=== PATIENT | male | born 1955 | race Caucasian/White ===

== ENCOUNTER 2017-06-27 17:25 | Emergency (ER) | payer MEDICARE, OTHER ==
[~2017-06-27] VITALS: Ht 167.6 cm; Wt 95.2 kg
[~2017-06-27 17:25] MED LIST: DOXAZOSIN MESYLA2 MG PO; DULOXETINE HCL30 MG PO; ENDOCET 10-3251 EACH PO; GABAPENTIN300 MG PO; INDOMETHACIN75 MG PO; METHADONE HCL5 MG PO; TIZANIDINE HCL4 MG PO; VALSARTAN80 MG PO
[2017-06-27] MEDS ORDERED: METHYLPREDNISOLO4 M1 PO (18:07)
== END 2017-06-27 18:35 | disposition home or self-care (01) ==
LOC: ED 17:25
DX: G89.29 Other chronic pain (principal); M54.5 Low back pain; I10 Essential (primary) hypertension; K21.9 Gastro-esophageal reflux disease without esophagitis; Z86.711 Personal history of pulmonary embolism; Z98.890 Other specified postprocedural states; Z90.49 Acquired absence of other specified parts of digestive tract; Z88.5 Allergy status to narcotic agent; Z79.899 Other long term (current) drug therapy; Z79.2 Long term (current) use of antibiotics
CPT/HCPCS: 96374; 99283; J1100

== ENCOUNTER 2019-05-07 14:02 | Emergency (ER) | payer MEDICARE, BC ==
[~2019-05-07] VITALS: Ht 167.6 cm; Wt 95.2 kg
[~2019-05-07 14:02] MED LIST changes: +METHYLPREDNISOLO4 M1 PO
--- OUTSIDE RECORDS SUMMARY | 2019-05-07 14:06 | XMS ---
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 Gloria VISIT COUNT (12 MO.) Karin Joel TOTAL 1 NOTE: Visits indicate total known visits. ED/UCC VISIT TRACKING (12 MO.) 05/07/2019 14:03 ALEXA Villalobos [place] TYPE: Emergency COMPLAINT: - WITHDRAWL SYMPTOMS INPATIENT VISIT TRACKING (12 MO.) No inpatient visits to display in this time frame [email or web address]
[2019-05-07] MEDS ORDERED: AMOXICILLIN500 MG (14:46)
[2019-05-07] MEDS ORDERED: GLUCOPHAGE1000 MG PO (14:46)
[2019-05-07] MEDS ORDERED: LOMOTIL TABLET1 EACH PO (16:47)
[2019-05-07] MEDS ORDERED: ONDANSETRON ODT8 MG PO (16:47)
[2019-05-07] MEDS ORDERED: CATAPRES0.2 MG PO (16:47)
== END 2019-05-07 17:14 | disposition home or self-care (01) ==
LOC: ED 14:02
DX: F11.23 Opioid dependence with withdrawal (principal); I10 Essential (primary) hypertension; Z88.5 Allergy status to narcotic agent; Z79.899 Other long term (current) drug therapy; Z79.84 Long term (current) use of oral hypoglycemic drugs
CPT/HCPCS: 36415; 80053; 85025; 96374; 99284-25; J2405; J7030

== ENCOUNTER 2020-01-08 11:38 | Inpatient (IN) | payer MEDICARE, BC ==
[~2020-01-08] VITALS: Ht 167.6 cm; Wt 92.1 kg
--- NOTE | ~2020-01-08 | DS ---
[facility] [address], [place] [address] Draft ADMISSION DATE: 01/08/2020 DISCHARGE DATE: 01/13/2020 REASON FOR ADMISSION: This 64-year-old white man is admitted to the hospital after presenting to the emergency room with right-sided back pain, evaluated by Dr. Bustos and found on CT scan to have a markedly edematous and inflamed gallbladder. He is admitted for further evaluation and care. The patient does have past medical history of diabetes, for which he takes insulin, has considered disabled related to chronic back pain. He has not worked in many years. PERTINENT PHYSICAL EXAMINATION: GENERAL: Pleasant white man, who does not look systemically toxic. VITAL SIGNS: Temperature is 98.7, pulse 96, blood pressure 163/76, and room air saturation between 85% and 92%. CHEST: Clear. HEART: Regular without murmur. ABDOMEN: Obese and soft. There is marked tenderness in right subcostal area. No evidence of ascites. Midline incision was noted to be well healed from prior laparotomy. He has had implantation of mesh for a large hernia. LABORATORY STUDIES: Showed a white count of 8.0. D-dimer was 386, which is normal. Hematocrit 39.2. Alkaline phosphatase 130, ALT 41, lipase 24, and bilirubin 1.6. HOSPITAL COURSE: He was admitted to the hospital with acute calculous cholecystitis based on findings of the CT scan and his clinical presentation. His potassium was low at 2.6 and therefore was repleted with potassium supplementation as well as magnesium. The potassium improved. On January 09, 2020, he underwent laparoscopy with laparoscopic lysis of adhesions and gallbladder decompression. The extent of his severe inflammation as well as extensive intraabdominal adhesions precluded laparoscopic approach to cholecystectomy despite attempts initially to do so. He underwent prolonged complicated difficult open cholecystectomy and he required common duct exploration. Flexible choledochoscopy was used to extract stone material in distal common duct noted on cholangiogram. A T-tube cholangiogram was normal. His postoperative course was marked by a fair amount of abdominal pain, which was managed with various medications including opiate and non-opiate types. PATIENT NAME: ELLIE PRIDE DISCHARGE SUMMARY DATE OF : 55 REPORT #: [id number] PHYSICIAN: FLAVIO POWELL MD PCP: JOSE A BONILLA MD REPORT IS CONFIDENTIAL AND NOT TO BE RELEASED WITHOUT AUTHORIZATION [facility] [address], [place] [address] Draft He did undergo a T-tube cholangiogram on January 12, 2020, which showed no sign of filling defect, no dilation of common duct and no leak. Accessory drain was left in place as it was equivocal as to any remaining bilious fluid drainage. This T-tube was capped off 24 hours prior to discharge. He had no nausea associated with this. At time of discharge, he is ambulating well, tolerating a regular ADA diet. He had some episodes of increased hypertension as he was not on his usual antihypertensive, but that will be initiated at time of discharge more fully. It is planned that he will undergo a T-tube cholangiogram in 3 to 4 weeks following discharge and if still normal extraction of the T-tube in the office setting. Additionally, he will go home with his accessory drain. He will be taught how to use it prior to discharge of course. It is noted that a prescription for Cipro 500 mg will be given an hour before his planned T-tube cholangiogram, which will be arranged prior to his discharge. DISCHARGE MEDICATIONS: Include: 1. Motrin 600 mg p.o. q.6 hours as needed for pain, #60, refill one. 2. Tylenol Extra Strength 500 mg two tablets p.o. q.6 hours as needed for pain, #60, refill one. 3. Pepcid 20 mg p.o. q.12 hours, #60, refill zero. 4. He will continue with his usual medications include gabapentin 300 mg p.o. b.i.d. and 300 mg tablets three tabs p.o. at bedtime. 5. Doxazosin 0.5 mg b.i.d. 6. Tizanidine hydrochloride 4 mg p.o. at bedtime. 7. Metformin XR 750 mg p.o. b.i.d. 8. Atorvastatin 20 mg p.o. daily. 9. Jardiance 10 mg tablets p.o. daily. 10. Lansoprazole 15 mg p.o. daily. DISCHARGE DIAGNOSES: 1. Severe acute cholecystitis with choledocholithiasis, status post laparoscopic evaluation, lysis of adhesions, decompression of gallbladder and conversion to open cholecystectomy with open common duct exploration and placement of T-tube. 2. Diabetes. 3. Hypertension. 4. Disability related to back pain. 5. Dyslipidemia. 6. Reflux disease. FOLLOWUP PLAN: PATIENT NAME: ELLIE PRIDE DISCHARGE SUMMARY DATE OF : 55 REPORT #: [id number] PHYSICIAN: FLAVIO POWELL MD PCP: JOSE A BONILLA MD REPORT IS CONFIDENTIAL AND NOT TO BE RELEASED WITHOUT AUTHORIZATION [address] [address] Draft He is return to see me in 3 to 4 weeks following his T-tube cholangiogram, anticipating removal of the T-tube in the office setting. He is additionally planning to see a new primary care provider, Dr. Becker, in [place]. His previous family physician, Dr. Bonilla, is no longer available to him at this time he says. MD ANKITA Lindsay/FORDL /[id number] cc: DO Jose A Hicks MD Copies: Ealr Becker CHRISTOPHER MD ~ PATIENT NAME: ELLIE PRIDE DISCHARGE SUMMARY DATE OF : 55 REPORT #: [id number] PHYSICIAN: FLAVIO POWELL MD PCP: JOSE A BONILLA MD REPORT IS CONFIDENTIAL AND NOT TO BE RELEASED WITHOUT AUTHORIZATION
[~2020-01-08 11:38] MED LIST changes: +AMOXICILLIN500 MG; +CATAPRES0.2 MG PO; +GLUCOPHAGE XR750 MG PO; +LOMOTIL TABLET1 EACH PO; +ONDANSETRON ODT8 MG PO
--- OUTSIDE RECORDS SUMMARY | 2020-01-08 11:42 | XMS ---
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 Gloria VISIT COUNT (12 MO.) 2 ALEXA Joel TOTAL 2 NOTE: Visits indicate total known visits. 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
[2020-01-08] MEDS ORDERED: IRBESARTAN300 MG PO (11:50)
[2020-01-08] MEDS ORDERED: ATORVASTATIN CA20 MG PO (11:50)
--- NOTE | 2020-01-08 18:11 | NUR ---
NEW ED ADMIT. CLEAR LIQUID DIET. OSORIO REMOVAL TOMORROW. NPO AT MIDNIGHT. LOW APPETITE. DILAUDID AND TYLENOL PRN. INDEPENDENT IN ROOM. IVF AT 125ML/HR. 2L 02 VIA NC. BASELINE ROOM AIR.
--- NOTE | 2020-01-08 21:28 | NUR ---
DR POWELL HERE TO SEE PT EARLIER. PERMIT SIGNED BY PT. MAG RIDER STARTED, AND FIRST BAG OF IV LR BOLUS. C/O ABD PAIN 8/10 BACK AND ABD PAIN, MEDICATED WITH DILAUDID 0.6MG IV. COOP WITH ASSESSMENT. AWARE OF NPO AFTER MIDNIGHT FOR AM PROCEDURE. CALL LIGHT AT BEDSIDE
--- NOTE | 2020-01-09 00:01 | NUR ---
PT AWAKE, NO C/O PAIN OR N/V. NPO OPF THIS TIME. SWABS AT BEDSIDE, CALL LIHGT AT HANDS REACH. USING URINAL, VOIDING qs DARK YELLOW URINE, ON ROOM AIR
--- NOTE | 2020-01-09 02:00 | NUR ---
C/O 7/10 BACK AND ABD PAIN, MEDICATED WITH DILAUDID 0.5MG IV. REPOSITIONS SELF IN BED, AWAKE, READING AN ELECTRONIC BOOK, DOES OWN MOUTH CARE. IVF INFUSING, TOLERATED POTASSIUM AND MAGNESIUM RIDER AND 2L OF LR IVF BOLUS. CALL LIGHT AT BEDSIDE, PT VOIDING QS DARK YELLOW URINE, NO FURTHER C/O N/V.
--- NOTE | 2020-01-09 04:11 | NUR ---
Resting, eyes closed, awakes easily, denies c/o pain or sob. NPO for am procedure, IVF infusing. Call light at bedside
--- NOTE | 2020-01-09 05:44 | NUR ---
c/o 06/26 back pain, medicated with Dilaudud 0.5mg IV. IVF infusing. T99.0, IS at bedside, return demonstration done. Room temp decreaesd from 74 to 70, 2 bed covers removed. will recheck, O2 2L NC, no distress. using urinal, NPO, does own mouth care, repositions self in bed. at bedside
--- NOTE | 2020-01-09 05:51 | NUR ---
c/o feeling nauseated, medicated with zofran 4mg IV
--- NOTE | 2020-01-09 05:58 | NUR ---
Pt has been awake off and on. NPO since midnight for possible am procedure. Has been medicated 4X with Dilaudid IV for chronic back and sternum pain for breathing, O2 2L NC in place, not chronic, denies sob with exertion. Voiding QS he uses urinal, urine dark yellow colored, strong smelling. SCDS in place. Pt received 2 Liter IV fluids, Potassium 40mEq IV and 2G Magnesium replacement. plus ancef abx. Has tolerated well. IVF infusing w/o problems. Was medicated at this time with Zofran per c/o feeling nauseated. Temp 99. room temp decreased and covers removed. IS given. will recheck Temp. Pleasant, alert and oriented, follows instructions. at bedside.
--- NOTE | 2020-01-09 07:22 | NUR ---
REPORT RECEIVED FROM BRETT CELIS. PT RESTING IN BED, REQUESTS PAIN MEDICATION AT 8:00. PT REPORTS 3/10 PAIN AT THIS TIME. ROOM AIR TRIAL ATTEMPTED. PT DROPS TO 89% ON ROOM AIR. PT PLACED ON 1L O2 BY NC, MAINTAINING O2 SATURATIONS AT 93% ON 1L O2 BY NC.
--- NOTE | 2020-01-09 08:19 | NUR ---
MORNING ASSESSMENT AND MEDICAITON DUE. PT RESTING IN BED. REPORTS / PAIN "WHEN I TAKE A DEEP BREATH." LUNG SOUNDS DEMINISHED. PT ENCOURAGED TO GET UP OUT OF BED. I.S. PROVIDED, PT REACHES 1250ML. ABDOMEN SOFT, BOWEL TONES HYPOACTIVE. PT MAINTAING O2 SATURATIONS ABOVE 92% ON 1L O2 BY NC. IV SALINE LOCKED FOR SHOWER. PT UP TO SHOWER, INDEPENDANT WITH ASSISTANCE FROM . MEDICAITONS GIVEN (SEE MAR). NO ADDITIONAL REQUESTS OR COMPLAINTS AT THIS TIME. CALL LIGHT WITHIN REACH. AT BEDSIDE.
[2020-01-09] MEDS ORDERED: JARDIANCE10 MG PO (08:20)
--- NOTE | 2020-01-09 10:00 | NUR ---
PT UPDATED ON PLAN FOR SURGERY. IV ASSESSED, INFILTRATED. DC'D PER PROTOCOL. GAUZE AND COBAN APPLIED. NEW IV STARTED IN RFA, FLUIDS INFUSING. PT REPORTS NAUSEA AND STATES HE "THREW UP A LITTLE." ZOFAN NOT DUE UNTIL NOON. MD CONSULTED. PRE-OP CHECK LIST DONE. PT HAS FINISHED SHOWER AND CHG WIPES. NO ADDITIONAL REQUESTS OR COMPLAINTS AT THIS TIME. CALL LIGHT WITHIN REACH.
--- NOTE | 2020-01-09 10:59 | NUR ---
PT TO OR, REPORT GIVEN TO LALITA CEDILLO.
--- NOTE | 2020-01-09 11:54 | NUR ---
PATIENT WAS AWAKE AND UP TO TAKE A SHOWER THIS MORNING, IN THE ROOM.
--- NOTE | 2020-01-09 14:59 | NUR ---
01/09/20 1453 TerryTiffanie 1431- PT ARRIVES TO PACU WITH HIS EYES OPEN, PT DOES NOT FOLLOW COMMANDS AND LOOKS SCARED. PT UPDATED THAT HIS SURGERY IS OVER AND HE IS IN THE RECOVERY ROOM. OXYGEN SAT HIGH 90'S TO 100% ON 10L VIA MASK. PT HOLDING HIS ARMS UP ABOVE HIS HEAD AND WILL NOT RELAX THEM EVEN WITH INSTRUCTION. FLAVIO LEWIS CRNA AT THE BEDSIDE DURING THIS.
--- NOTE | 2020-01-09 15:09 | HP ---
[facility] [address] [place], [place] [address] Signed ADMISSION DATE: 01/08/2020 REASON FOR ADMISSION: Severe acute cholecystitis. Other medical problems including hypokalemia. HISTORY: This 64-year-old white man is admitted to the hospital after presenting to the emergency room with right-sided back pain. He was evaluated by Dr. Arndt and found on CT scan to have a markedly edematous and inflamed gallbladder. The patient does have diabetes, for which he takes insulin and is considered disabled related to chronic back pain. He has not worked for many years. His symptoms of upper abdominal pain and back pain began on Friday (today is Friday). He has had increasing symptoms and worsening of those symptoms. He presented to the emergency room where his evaluation included a urinalysis, which showed 30 red cells per high-power field. He underwent a CT scan, which did not show hydronephrosis, but there was renal cortical thinning, but indeed there were marked edematous changes of the gallbladder consistent with acute cholecystitis. He is admitted for further evaluation and care. PAST MEDICAL HISTORY: Includes diabetes mellitus. He does take insulin for this. He also has chronic back pain, gastroesophageal reflux, hypertension, and hypercholesterolemia. Notably, the patient has undergone incisional hernia repair related to a midline incision for diverticulitis. He has a long segment of prosthetic mesh in the midline. Additionally, the patient is noted to have had left knee surgery in the past and back surgery, which was ineffective in controlling his symptoms of pain. His medications at admission include irbesartan, atorvastatin, gabapentin, doxazosin, and tizanidine. The patient was on opiates chronically until past year or so when complete absence of narcotics has been accomplished. His primary care provider was Dr. Bonilla for many years. He is currently free of primary care provider as Dr. Bonilla is no longer practicing, he tells me. REVIEW OF SYSTEMS: He denies any shortness of breath or chest pain. He has no dysphagia. Denies any hematemesis or blood per rectum. He has no precordial chest pain. Electronically Signed By: FLAVIO POWELL MD 01/09/20 1509 PATIENT NAME: ELLIE PRIDE HISTORY AND PHYSICAL DATE OF : 55 REPORT #: [id number] PHYSICIAN: FLAVIO POWELL MD PCP: YULISA BONILLA MD REPORT IS CONFIDENTIAL AND NOT TO BE RELEASED WITHOUT AUTHORIZATION [facility] [address] [place], [place] [address] Signed Of special note, the patient has a distant history of pulmonary embolism following abdominal operation. He was anticoagulated for some amount of time, no longer is at the case. SOCIAL HISTORY: He is and considered disabled. He lives in [place]. PHYSICAL EXAMINATION: GENERAL: This is a pleasant white man who does not look systemically toxic. VITAL SIGNS: Current vital signs showed a temperature of 98.7, pulse is 96, blood pressure 163/76, room air saturation is between 85% and 92%. NECK: Shows no thyromegaly or cervical adenopathy. Trachea is midline. HEENT: Mucous membranes are quite dry. CHEST: Clear. HEART: Regular without murmur. ABDOMEN: Obese and soft. There is marked tenderness in the right subcostal area and a slight consideration this may represent a mass. Midline incision is noted to be well healed. There is no evidence of hernia. EXTREMITIES: Show no clubbing, cyanosis, or edema. LAB STUDIES: In the ER showed a white count of 8.0, hematocrit 39.2, platelets of 332,000. Coagulation studies include a D-dimer, which is 386, normal is less than 400. His Chem profile shows a potassium of only 2.8, creatinine is 1.18, total bilirubin 1.6, AST 81, alkaline phosphatase 130, ALT 41, lipase is 24. Urinalysis; specific gravity 1.025, pH is 7, urine rbc's 30 per high-power field, epithelial crystals, bacteria negative, casts are negative, large urine glucose is noted. I have reviewed a CT scan in detail as well as emergency room reports and so on. ASSESSMENT: The patient has acute acalculous or possibly calculus cholecystitis. It is clear that the gallbladder is quite edematous and markedly inflamed. Given his underlying diabetes, he may have had inflammation longer than even his own recollection of several days ago. He has potassium that is low and does admit to some amount of diarrhea recently for unknown reasons, this is not a chronic problem. I would recommend continued IV fluid resuscitation as well as potassium repletion and likely magnesium repletion. Consideration will be made for cholecystectomy for Electronically Signed By: FLAVIO POWELL MD 01/09/20 1509 PATIENT NAME: ELLIE PRIDE HISTORY AND PHYSICAL DATE OF : 55 REPORT #: [id number] PHYSICIAN: FLAVIO POWELL MD PCP: YULISA BONILLA MD REPORT IS CONFIDENTIAL AND NOT TO BE RELEASED WITHOUT AUTHORIZATION [address] [address] Signed cholecystitis tomorrow. Would not schedule the case until electrolytes and other medical features have been optimized. He will need additional fluid as he is clinically dehydrated. I would make him n.p.o. after midnight so as to optimize chances for operative intervention tomorrow. We discussed laparoscopic and open cholecystectomy techniques and the risks attendant to each including the risks of bleeding, infection, bile duct injury, need for open procedure in case of an attempt at laparoscopic cholecystectomy and so on. Whether or not the implanted mesh will be a factor in access to the abdomen is uncertain, but nearly always associated with some amount of adhesiolysis. He understands all this. MD ANKITA Lindsay/FORDL /[id number] cc: Ivan Arndt MD Copies: IVAN ARNDT MD ~ Electronically Signed By: FLAVIO POWELL MD 01/09/20 1509 PATIENT NAME: ELLIE PRIDE HISTORY AND PHYSICAL DATE OF : 55 REPORT #: [id number] PHYSICIAN: FLAVIO POWELL MD PCP: YULISA BONILLA MD REPORT IS CONFIDENTIAL AND NOT TO BE RELEASED WITHOUT AUTHORIZATION
--- NOTE | 2020-01-09 15:45 | NUR ---
PT RETURNED FROM PACU. PT DROWSY AND FORGETFUL. PT REMAINS ON 4L O2 BY NC WITH O2 SATURATION AT 97%. ASSESSMENT DONE. DRESSINGS SHOW SMALL AMOUNT OF SHADOWING. SERIOUS ANGUINOUS DRAINAGE IN FREEMAN DRAIN. YELLOW DRAINAGE FROM T-TUBE. GUZMAN CATHETER DRAINAING DARK YELLOW URINE TO GRAVITY. AT BEDSIDE. PT REORIENTED NEEDED. SCD'S IN PLACE. CALL LIGHT WITHIN REACH. BED ALARM ON.
--- NOTE | 2020-01-09 16:39 | NUR ---
PT AWAKE, A BIT SLEPPY D/T RECENT SEDATION. PT IS ON 4L OXYGEN PER NC, RESP EVEN AND NON LABORED. VITAL SIGNS ARE STABLE. T TUBE INTACT TO RIGHT UPPER ABD REGION, PATENT WITH CLR YELLOW DRAINAGE NOTED. FREEMAN LOWER RIGHT ABD IS INTACT, PATENT WITH SAROSANG DRAINAGE NOTED. GUZMAN INTACT, PATENT WITH YELLOW URINE. PT'S AT BEDSIDE. NO NEEDS AT THIS TIME. PT REPORTS PAIN IS TOLERABLE AT 6/10 IN ABD. IV INFUSING. CPOX INTACT, 02 SAT LEVEL OF 96% ON 4L.
--- NOTE | 2020-01-09 17:18 | NUR ---
VITALS AND ASSESSMENT DUE. PT RESTING IN BED, MORE ALERT BUT CONTINUES TO BE DROWSY AND FORGETFUL. ADDITIONAL RED DRAINAGE, SMALL AMOUNT, NOTED TO UMBILICAL INCISION. DRESSINGS OTHERWISE UNCHANGED. PT WEANED TO 3L O2 BY NC. MAINTAINING O2 SATURATIONS ABOVE 92%. AT BEDSIDE. 20ML SERIOUS ANGUINOUS DRAINAGE REMOVED FROM FREEMAN DRAIN. PT REPORTS 7/10 PAIN. SEE MAR FOR MEDICATION GIVEN. NO ADDITIONAL REQUESTS OR COMPLAINTS. FAMILY AT BEDSIDE. CALL LIGHT WITHIN REACH.
--- NOTE | 2020-01-09 17:25 | NUR ---
PATIENT RESTING IN BED. AND RN IN ROOM. VITAL SIGNS DONE BY RN. I&O DONE. CALL LIGHT WITHIN REACH. NO OTHER NEEDS AT THIS TIME
--- NOTE | 2020-01-09 18:21 | NUR ---
VITALS AND ASSESSMENT DUE. PT RESTING IN BED, LEAVING TO GO HOME FOR THE EVENING. EDUCATION DONE WITH PT REGARDING FALL PREVENTION. PT VERBALIZES UNDERSTANDING AND DEMONSTRATES USE OF CALL LIGHT. PT REPORTS 6/10 PAIN AND STATES IT IS TOLERABLE AT THIS TIME. PT DENIES NEED FOR ADDITIONAL MEDICATION AT THIS TIME AND DRIFTS OFF TO SLEEP. PT AWAKENS AT TIMES AND BEGINS READING BOOK ON TABLET. ASSESSMENT DONE. LUNG SOUNDS CLEAR. PT DEMONSTRATES USE OF I.S. REACHING 1000ML. O2 WEANED TO 1 L O2 BY NC, O2 SATURATIONS MANTAINING ABOVE 92%. NO CHANGE TO DRESSINGS. MINOR LEAKING OF SERIOUS ANGUINOUS FLUID UNDER OPSITE, GAUZE IN PLACE. NO ADDITIONAL REQUESTS OR COMPLAINTS AT THIS TIME. CALL LIGHT WITHIN REACH. BED ALARM ON.
--- NOTE | 2020-01-09 18:32 | NUR ---
PT POST OP DAY ZERO FOR OPEN CHOLEYCYSTECTOMY. FOAM DRESSING IN PLACE WITH MINIMAL SHADOWING. FREEMAN DRAIN DRAINING SERIOUSANGUINOUS DRAINAGE. T-TUBE DRAINING YELLOW FLUID, MINIMAL AMOUNT. PT WEANED TO 1L O2 BY NC WITH O2 SATURATIONS ABOVE 92%. GUZMAN CATHETER IN PLACE, QUANTITY SUFFICIENT. PT FORGETFUL AND DROWSY AFTER SEDATION, BED ALARM ON. PRN PAIN MEDICAITON GIVEN FOR 5-6/10 PAIN. PT USES CALL LIGHT INCONSISTANTLY AT THIS TIME.
--- NOTE | 2020-01-09 19:10 | NUR ---
BEDSIDE REPORT RECEIVED FROM LALITA ODELL. pt AWAKE, RESTING IN BED. RATES PAIN 6-7/10 "NOT TERRIBLE" IN ABDOMEN. IVF INFUSING WNL ORDERED. SPO2 94% W 1L OXYGEN BY NC IN PLACE. BED ALARM ON. CALL LIGHT IN REACH.
--- NOTE | 2020-01-09 20:59 | NUR ---
ROUNDED CHARGE. PATIENT IS RESTING IN BED. VITALS TAKEN AND RECORDED. INTAKE AND OUPUT RECORDED. ALL DRAINS EMPTIED. GUZMAN EMPTIED. PATIENT RATES PAIN AT A 9/10. PRIMARY RN IN ROOM TO ADMINISTER PAIN MEDS. PATIENT DENIES ANY FURTHER NEEDS. CALL LIGHT IN REACH.
--- NOTE | 2020-01-09 21:04 | NUR ---
PT REPORTED PAIN 9/10. PRN MED WAS GIVEN WITH SOME RELIEF. PT ALERT, ORIENTED, COOPERATIVE. HR REGULAR, LUNG SOUND DIMINISHED. BOWEL SOUND X3 QUADRANTS. DOIN BREATHING EXERSISE WITH SPIROMETR.
--- NOTE | 2020-01-09 23:16 | EKG ---
[facility] [address] [facility] [place] [address] Signed Normal sinus rhythm Voltage criteria for left ventricular hypertrophy Prolonged QT Abnormal ECG When compared with ECG of 03-SEP-2018 15:01, T wave inversion now evident in Inferior leads Confirmed by GENESIS RUDD MD ([id number]) on 01/09/2020 11:16:43 PM Electronically Signed By: GENESIS RUDD MD 01/09/20 2316 PATIENT NAME: SHANNENELLIE MIGUEL Electrocardiogram DATE OF : 55 PHYSICIAN: GENESIS RUDD MD REPORT #: [id number] REPORT IS CONFIDENTIAL AND NOT TO BE RELEASED WITHOUT AUTHORIZATION
--- NOTE | 2020-01-09 23:16 | NUR ---
CHECKED ON pt. RESTING IN BED WITH EYES CLOSED. BREATHING UNLABORED. SPO2 95% ON 1L OXYGEN BY NC. CALL LIGHT IN REACH. BED ALARM ON.
--- NOTE | 2020-01-09 23:46 | NUR ---
CALL LIGHT ANSWERED. PT REPORTED PAIN 8/10 IN HIS ABDOMEN. PRN HYDROMORPHONE WAS GIVEN. PT ALERT, EDUCATION ABOUT SIDE EFFECTS WAS PROVIDED.
--- NOTE | 2020-01-10 00:10 | NUR ---
2PA TO GET pt OUT OF BED, ABMULATE HALLWAY X 1 LAP. pt TOLERATED WELL, 8/10 PAIN WITH AMBULATION. pt BACK IN BED, SCDS ON. DRAINS INTACT, GUZMAN DRAINING YELLOW URINE. SPO2 WNL ON 1L OXYGEN BY NC. BED ALARM ON, CALL LIGHT IN REACH.
--- NOTE | 2020-01-10 02:32 | NUR ---
pt reported pain 8/10, prn pain medication was given.abdomen tender upon palpation. Nurse Barbi performed padron care. BG WNL no insulin needed at this time. Pt alert, cooperative with cares.
--- NOTE | 2020-01-10 03:20 | NUR ---
pt resting comfortably with his eyes closed.
--- NOTE | 2020-01-10 06:30 | NUR ---
PT REPORTED PAIN 06/26. PRN MEDICATION WAS GIVEM AT 05:45. T 100.6, P 98, RR 16, BP 180/75. CHARGE NURSE NOTIFIED. URINE OUTPUT 1675 ML FOR THIS SHIFT. FREEMAN DRAIN OUTPUT 50 ML SEROSANGUINOUS FRAINAGE, T DRAINE 40 ML YELLOW DRAINAGE. ABDOMINAL TENDER UPON PULPATION, BOWEL SOUNDS ARE ACTIVE X4 QUADRANTS.
--- NOTE | 2020-01-10 06:41 | NUR ---
PT ALERT, ORIENTED X4, COOPERATIVE WITH ALL CARES. ON 2L OF O2, MAINTAINED SPO2 91-92% ALL NIGHT. GUZMAN CATHETER DRAINED OUT 1675 ML OF CLEAR YELLOW URINE, FREEMAN DRAIN 50 ML OF SEROSANGUINOUS DRAINAGE, T TUBE - 40 ML OF YELLOW DRAINAGE. AT 5:45 REPORTED PAIN 8/10. BP 180/75, P 98, RR 16, T100.6 . PRN pAIN MEDICATION WAS GIVEN. BP RECHECKED IN 15 MIN 178/77. CHARGE NURSE NOTIFIED. AT THE END OF THE SHIFT PAIN LEVEL DOWN TO 4/10. AMBULATED TWICE DURING THIS SHIFT.
--- NOTE | 2020-01-10 06:51 | NUR ---
pt UP AMBULATING HALLWAY W BRUSH WASHER SBA. ABDOMEN GUARDED, BRACING WITH FOLDED DRAW SHEET.
--- NOTE | 2020-01-10 07:12 | NUR ---
PHONE CALL TO MD. PRN NAUSEA MEDICATION, DIET ORDER, PRN PAIN MEDICATIONS REPEATED BACK. TELEPHONE ORDER TO START pt ON HOME BP MEDICATIONS REPEATED BACK. PHONE CALL TO PHARMACIST JAS TO ORDER HOSPITALS [facility]MUL[facility].
--- NOTE | 2020-01-10 07:25 | NUR ---
REPORT RECEIVED FROM GINNY, AND Marry AKBAR. PT ASSISTED WITH REPOSITIONING IN BED AFTER A WALK. TEMPERATURE REASSESSED, NOW 98.5. PT REPORTS 6/10 PAIN THAT IS TOLERABLE AT THIS TIME. PT DENIES NAUSEA AND REQUESTS CEREAL FOR BREAKFAST. O2 SATURATIONS AT 94% ON 2L O2 BY NC. SCD'S IN PLACE. NO ADDITIONAL REQUESTS OR COMPLAINTS AT THIS TIME. CALL LIGHT WITHIN REACH.
[2020-01-10] MEDS ORDERED: CYMBALTA30 MG PO (07:57)
--- NOTE | 2020-01-10 08:50 | NUR ---
Spoke with Marko and his Shannen. They live in [place] in an RV with [address] recently retired and his has scheduled him an appt with [facility]. She will get the appt time. 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 He has had a few broken bones and use a cane when his knee hurts. They deny needs to go home and plan on dc to RV.
--- NOTE | 2020-01-10 08:55 | NUR ---
MORNING ASSESSMENT AND MEDICATIONS DUE. MD TO BEDSIDE FOR ROUNDS. VERBAL ORDERS TO CHANGE DRESSING TO FREEMAN SITE. DRESSING CHANGED ORDERED. GUZMAN REMOVED PER MD ORDER. PT REPORTS 8/10 PAIN, SEE MAR FOR MEDICATION GIVEN. IV FLUID RATE DECREASED (SEE MAR). MODERATE AMOUNT OF RED DRAINAGE ON UMBILICAL DRESSING. SMALL AMOUNT ON RUQ SITE. BROWN/GREEN DRAINAGE IN T-TUBE BAG. DRESSINGS INTACT. CRACKELS NOTED TO LOWER LOBES OF LUNGS. PT ENCORUAGED TO AMBULATE TOLERATED. I.S. USE DEMONSTRATED REACHING 1250ML. AT BEDSIDE. NO ADDITIONAL REQUESTS OR COMPLAINTS AT THIS TIME. CALL LIGHT WITHIN REACH.
[2020-01-10] MEDS ORDERED: PREVACID15 MG PO (09:13)
--- NOTE | 2020-01-10 10:10 | NUR ---
THIS RN TO ROOM TO CHECK ON PT. PT RETURNING FROM WALKING 3 LAPS AROUND UNIT. PT REPORTS 2/10 PAIN THAT WENT UP TO 5/10 PAIN WHEN AMBULATING AND THEN DOWN TO 3/10 ONCE BACK TO BED. PT TOLERATING ROOM AIR WITH O2 SATURATIONS FROM 89-92%. PT VISITING WITH FAMILY AND FRIENDS. NO ADDITIONAL REQUESTS OR COMPLAINTS AT THIS TIME. CALL LIGHT WITHIN REACH.
--- NOTE | 2020-01-10 11:10 | NUR ---
UPON ENTERING PT ROOM INTRODUCED MYSELF TO PT AND PERSON IN THE ROOM WHICH HE STATED WAS HIS SONG AND HE GAVE VERBAL OK TO SPEAK IN FRONT OF AND WITH HIS . WE DISCUSSED PT DIAGNOSIS, NEITHER OF THEM HAD ANY FURTHER QUESTIONS, CONCERNS OR NEEDS AT THIS TIME.
--- NOTE | 2020-01-10 12:09 | NUR ---
NOON ASSESSMENT DUE. PT UP TO AMBULATE IN NG X3 LAPS. PT BACK TO BED. GOWN CHANGED. LUNG SOUNDS CLEAR BUT DEMINISHED. I.S. USE DEMONSTRATED REACHING 1250ML. PT DECLINES LUNCH AT THIS TIME. PT REPORTS 3/10 PAIN AND DENIES NEED FOR MEDICATION AT THIS TIME. COPX READS 92% ON ROOM AIR. FREEMAN DRAIN EMPTIED OF 40ML SERIOUS ANGUINOUS DRAINAGE. PT HAS VOIDED 100ML DARK YELLOW URINE. NO ADDITONAL REQEUSTS OR COMPLAINTS AT THIS TIME. CALL LIGHT WITHIN REACH.
--- NOTE | 2020-01-10 13:29 | NUR ---
PT SITTING IN CHAIR, BLANKET ON ABDOMEN AND RN FRANK IN GIVING PT MEDS FOR NAUSEA. VOID BAG WITHIN REACH. GAVE ENCOURAGEMENT AND BLESSING, WILL CHECK LATER WITH PT.
--- NOTE | 2020-01-10 14:12 | NUR ---
PATIENT IN BED RESTING WITH EYES CLOSED. CALL LIGHT IN REACH. NO FURTHER NEED AT THIS TIME.
--- NOTE | 2020-01-10 14:15 | NUR ---
PT RESTING IN BED WITH EYES CLOSED, RESPIRATIONS EVEN AND UNLABORED. BED RAILS UP. CALL LIGHT WITHIN REACH. O2 SATURATION 90% ON ROOM AIR. CALL LIGHT WITHIN REACH.
--- NOTE | 2020-01-10 17:00 | NUR ---
AFTERNOON ASSESSMENT DUE. PT RESTING IN BED, VISITING WITH . PT REPORTS 4/10 PAIN AND MILD NAUSEA. SEE MAR FOR MEDICATION GIVEN. DRESSSINGS UNCHANGED BUT FOR INCREASED DRAINGE ON FREEMAN DRESSING. PT REPORTS FEELING GAS MOVING BUT HAS NOT YET PASSED GAS. PT DECLINES DINNER. NO ADDITIONAL REQUESTS OR COMPLAINTS. PT DENEIES NEED FOR PAIN MEDICATION AT THIS TIME. CALL LIGHT WITHIN REACH.
--- NOTE | 2020-01-10 18:30 | NUR ---
PATIENT IN BED. CALL LIGHT IN REACH. NO FURTHER NEEDS AT THIS TIME.
--- NOTE | 2020-01-10 18:59 | NUR ---
PT POST OP DAY ONE FOR CHOLEYCYSTECTOMY. PRN PAIN MEDICATION GIVEN FOR 3-8/10 PAIN. PRN NAUSE MEDICATION GIVEN THIS SHIFT. PT ADVANCED TO REGULAR DIET BUT HAS DECLINED MEALS THIS SHIFT. PT UP TO AMBULATE 3-4 LAPS X3 THIS SHIFT. TOLERATING AMBULATION WELL. NEW DRESSING APPLIED TO FREEMAN SITE, CONTINUES TO HAV MODERATE AMOUNT OF SERIOUSANGUINOUS DRAINAGE. T-TUBE DRAINING BROWN/GREEN FLUID. DRESSINGS SHOW SMALL TO MODERATE AMOUNT OF RED DRANAGE, MINIMAL NEW DRAINAGE THIS SHIFT. GUZMAN DC'D, PT VOIDING QUANTITY SUFFICIENT. PT WEANED TO ROOM AIR THIS SHIFT. PT USES CALL LIGHT APPROPRIATLY.
--- NOTE | 2020-01-10 19:41 | NUR ---
RECEIVED REPORT FROM NURSE ODELL. PT AMBULATED DURING THE DAY. ON RA, STATED "FEEL MUCH BETTER". WILL MONITOR DRESSING AND BG.
--- NOTE | 2020-01-10 20:23 | OR ---
[facility] [address], [place] [address] Signed DATE OF OPERATION: 01/09/2020 SURGEON: Flavio Powell MD PREOPERATIVE DIAGNOSES: 1. Acute calculous cholecystitis with increased elevated liver enzymes. 2. Diabetes and multiple medical problems. POSTOPERATIVE DIAGNOSES: Severe acute cholecystitis with multiple stones and sludge debris and additional findings of common duct stones. PROCEDURES: 1. Laparoscopy with laparoscopic lysis of adhesions and gallbladder decompression. 2. Conversion of open cholecystectomy, prolonged complicated difficult. 3. Common bile duct exploration with extraction of stones. 4. Flexible choledochoscopy with stone basket extraction of distal common bile duct stones. 5. Completion T-tube cholangiogram with surgeon-directed fluoroscopy. ANESTHESIA: General endotracheal; Flavio Valdez CRNA. INDICATION: This 64-year-old white man presented to the emergency room and admitted on January 08 with 2 weeks of increasing back pain and upper abdominal pain. A CT scan was performed under the direction of Dr. Bustos showing a markedly edematous and inflamed gallbladder. The patient does have diabetes, for which he is taking insulin. He is considered disabled related to chronic back pain. He has not worked for a number of years. He has other medical problems in addition to the back pain and diabetes including reflux, hypertension, and hypercholesterolemia. He has been fluid resuscitated and given intravenous antibiotics and electrolyte repletion undertaken for a potassium of only 2.3. He is noted to have a total bilirubin of 1.6 initially and elevated to 3.0 with an AST of 81, alkaline phosphatase of 130, ALT 41 at admission, but increased since admission. He and his understand the risks of operation including but not limited to bleeding, infection, need for open procedure, need for common duct exploration and other unforeseen complications. Understanding this they wished to proceed. Electronically Signed By: FLAVIO POWELL MD 01/10/202022 PATIENT NAME: ELLIE PRIDE OPERATIVE REPORT DATE OF : 55 REPORT #: [id number] PHYSICIAN: FLAVIO POWELL MD PCP: YULISA BONILLA MD REPORT IS CONFIDENTIAL AND NOT TO BE RELEASED WITHOUT AUTHORIZATION [facility] [address], [place] [address] Signed FINDINGS: The patient has a long midline incision from prior incisional hernia repair, for which a mesh was implanted widely. Entry of the abdomen was accomplished with all due care and extensive adhesions were noted in the upper abdomen. These were taken down with sharp dissection. The gallbladder itself was quite markedly inflamed, markedly dilated, and so forth and decompression was partially undertaken. The gallbladder was able to be elevated cephalad and dissection in the infundibulum showed it to be a rather unlikely ability to successfully perform a laparoscopic approach safely given the distortion of the anatomy. On that basis, conversion to open operation was undertaken, which in hindsight was absolutely necessary. The cystic duct was relatively small. Cholangiogram showed distal common duct filling defects and this prompted open common duct exploration. Extraction of dark and yellow vital stone material was undertaken in the distal common duct and completion of T-tube cholangiogram shows good flow into the duodenum without any filling defects. The liver itself appeared reasonably normal. There remains multiple adhesions of the intra-abdominal space. PROCEDURE: The patient was brought to the operating room, given a general endotracheal anesthetic. Preoperative antibiotic Ancef had been given. Sequential compression device stockings used and heparin subcutaneously administered. The abdomen was clipped and prepared with chlorhexidine solution. A Dumont catheter was placed on the possibility of a common duct exploration requirement. An infraumbilical incision was made in the previous midline incision. Dissection carried through the subcutaneous tissue. The mesh was encountered from prior repair. There appeared to be relatively smooth, though I do not believe that it was Gordon-Florentin per se. With meticulous care, this area was incised and blunt dissection through the properitoneal fat, ultimately into the abdominal cavity undertaken. Insinuation of the examining finger showed the peritoneum to be free to the right and somewhat encumbered to the left and midline. Using a Deysi cannula, pneumoperitoneum was achieved to a level of 14 mmHg with carbon dioxide gas. Intra-abdominal inspection was undertaken with angled 30 degree scope showing numerous adhesions in the upper abdomen. At 1st, it was considered unlikely that an operative approach would be possible. However, right anterior axillary line, a 5 mm trocar was placed allowing for sharp lysis of adhesions of the omentum. This allowed for progressive opening of the upper abdomen and ultimately visualization of the gallbladder itself. The gallbladder was quite markedly distended and inflamed and had a yellowish green color consistent with chronic and persistent inflammatory change. So as to maintain efforts at a laparoscopic approach, further dissection was undertaken in the epigastric area allowing for placement of a 12 mm trocar. The gallbladder was stented upward and could not be grasped with the grasping device and therefore a needle trocar Electronically Signed By: FLAVIO POWELL MD 01/10/202022 PATIENT NAME: ELLIE PRIDE OPERATIVE REPORT DATE OF : 55 REPORT #: [id number] PHYSICIAN: FLAVIO POWELL MD PCP: YULISA BONILLA MD REPORT IS CONFIDENTIAL AND NOT TO BE RELEASED WITHOUT AUTHORIZATION [address] [place], [place] [address] Signed was used to decompress the gallbladder. The thickness of the sludge and so forth within the gallbladder allowed for only minimal decompression. The puncture site was grasped and elevated cephalad. An additional 5 mm port was placed in the right mid clavicular line and dissection was undertaken in the infundibulum. Blunt electrocautery dissection was undertaken but the tissue appeared to be completely fused in the region of the duodenum and it was quite clear that a laparoscopic approach would be unlikely successful, particularly considering the high probability of common duct stones, which would require laparoscopic common duct exploration. On that basis, conversion to open operation was deemed most advisable. The trocars were removed under direct visualization showing no sign of bleeding. The infraumbilical fascial incision was reapproximated with interrupted 0 Vicryl as well as a running 0 PDS suture, taking meticulous care to reapproximate the fascia and avoid intra-abdominal injury. The right subcostal incision was made two fingerbreadths below the costal margin. Dissection carried through the subcutaneous tissue, anterior rectus sheath, rectus muscle, and posterior rectus sheath and attendant peritoneum. Entry to the abdomen showed the gallbladder to be quite markedly inflamed and distended more so than even appeared laparoscopically. A Bookwalter retractor with the small ring was applied to the table and the costal margin elevated in the abdominal viscera inferiorly and allowed for good visualization of the gallbladder. Marked edema and inflammation of the infundibulum of the gallbladder caused to be essentially fused with the lateral portion of the duodenum. A top-down approach was deemed most advisable. Using electrocautery, the peritoneum over the gallbladder was incised and the avascular plane encountered but often lost in dissection. Initially, entry to the gallbladder showed thick tenacious bile with stones, sand, and other debris, which was quite impressive indeed. This certainly explained wide decompression. The gallbladder was not really forthcoming in any reasonable way. With various manipulations, the peritoneum over the gallbladder was incised and the posterior wall was excised allowing for complete resection of the gallbladder. Once the infundibulum was more fully exposed, the duodenum could be safely and ultimately the cystic duct, cystic artery and so forth were identified. The cystic duct was of average size. Clips were applied to the cystic arterial branches. A right angle clamp was applied to the gallbladder cystic duct junction and tonsil clamp to the cystic duct itself and the cystic duct was transected. There was thick tenacious bile noted in the cystic duct. Using an Lundberg type cholangiocatheter, the cystic duct was insinuated and secured with a silk tie and cholangiogram undertaken, but failed due to leakage and therefore a clip applied after application of the cholangiocatheter allowing for good cholangiogram. Free fill into the biliary tree was noted. It was not particularly dilated, but in the distal portion where filling defects clearly indicative of stone. Though, there was Electronically Signed By: FLAVIO POWELL MD 01/10/202022 PATIENT NAME: ELLIE PRIDE OPERATIVE REPORT DATE OF : 55 REPORT #: [id number] PHYSICIAN: FLAVIO POWELL MD PCP: YULISA BONILLA MD REPORT IS CONFIDENTIAL AND NOT TO BE RELEASED WITHOUT AUTHORIZATION [facility] [address] [place] [id number] Signed flow of contrast through the ampulla into the duodenum considering the patient had an open operation, an open common duct exploration was deemed most advisable. The catheter was removed and the cystic duct was triply clipped and dissection began to identify the common bile duct. The edematous fatty layer over the common duct was gently elevated and divided with electrocautery revealing the underlying common bile duct. The cystic duct junction was easily identified. Using an #11 blade, a choledochotomy was made in the anterior aspect of the somewhat dilated common duct allowing for egress of bilious material fluid and some bits of dark stone material. Prior to choledochotomy, two stay sutures of 4-0 PDS have been placed and the choledochotomy was extended with Casanova scissors distally. Irrigation was undertaken and the common bile duct and dark stone bits were noted to come out. The flexible choledochoscope with continuous irrigation was then passed into common bile duct. Examined distally showed several bits of dark flaky stone material as well as a stellate larger yellow impacted stone in the distal duct. With a stone basket, the distal stone could be grasped and withdrawn and removed. Irrigation was undertaken more fully and other stone bit material removed. Application of the choledochoscope proximally showed the proximal biliary tree to be normal. No sign of retained stone, neoplasm, or other problem. A #14 T-Tube was cut to the appropriate configuration and insinuated into the common bile duct. The choledochotomy was secured with interrupted 4-0 PDS suture. The catheter was irrigated and found to have no leak. Completion cholangiogram was then undertaken showing free flow of contrast to the biliary tree. An air bubble was noted and therefore suction on it allowed it to resolve quickly. Additional view showed good flow into the duodenum. No sign of filling defect and no impediment to flow and no leaks. One of the trocar sites, a 7 mm flat Shaggy drain was placed in the subhepatic space. Irrigation was undertaken fully to cleanse the subhepatic space of any spilled stone debris. Plans were then made for closure. As the subcostal incision had partially transected the mesh repair and not wanting to traverse the mesh with the T-tube, the T-tube was directed superiorly just below the costal margin through a separate stab incision and was secured to the skin with nylon suture. The posterior sheath and its attendant peritoneum were reapproximated with running #1 PDS. The muscular layer was irrigated as Electronically Signed By: FLAVIO POWELL MD 01/10/202022 PATIENT NAME: ELLIE PRIDE OPERATIVE REPORT DATE OF : 55 REPORT #: [id number] PHYSICIAN: FLAVIO POWELL MD PCP: YULISA BONILLA MD REPORT IS CONFIDENTIAL AND NOT TO BE RELEASED WITHOUT AUTHORIZATION [facility] [address], [place] [address] Signed was the subcutaneous layer and the anterior rectus sheath was similarly reapproximated. Care was taken to avoid encumbrance of either drain. Though the T-tube had been placed to gravity, there appeared to be really no efflux of bile from the T-tube. By this point, all the wounds have been entirely closed. Despite the inconvenience, it was deemed appropriate to assure that the T-tube was indeed within the biliary tree and therefore cholangiogram was once again performed on the table showing good connection to the biliary tree with good emptying into the duodenum. There were some bubbles in the common duct, but that was not of concern only to ascertain that the T-tube was in fact in the common bile duct. The T-tube and drain were secured to the skin with nylon suture previously and OpSite dressings applied. Other wounds had Steri-Strips applied and silver sponge dressings. The patient was ultimately extubated and transported to the recovery room in good condition having suffered no complication. Sponge, needle, and instrument counts reported as correct x3. MD ANKITA Lindsay/FORDL /[id number] cc: MD Yulisa Mckeon MD Copies: LEANN BELL MD, CHRISTOPHER MD ~ Electronically Signed By: FLAVIO POWELL MD 01/10/202022 PATIENT NAME: ELLIE PRIDE OPERATIVE REPORT DATE OF : 55 REPORT #: [id number] PHYSICIAN: FLAVIO POWELL MD PCP: YULISA BONILLA MD REPORT IS CONFIDENTIAL AND NOT TO BE RELEASED WITHOUT AUTHORIZATION
--- NOTE | 2020-01-10 21:14 | NUR ---
PT IN BED. SPO2 88% ON RA. PUT ON 1L OF O2. SPO2 WENT UP 90% AFEBRILE, BP ELEVATED 174/72. REPORTED PAIN 8/10.
--- NOTE | 2020-01-10 23:59 | NUR ---
Prn medications were administrated. Pt maintaning SpO2 92% on 1l of O2 via nc. Changed gauzes to prevent T tube leaking. Pt tolerated well.
--- NOTE | 2020-01-11 00:38 | NUR ---
PT VOIDED 100 ML OF CLEAN YELLOW URINE. REPORTED PAIN 6/10. LOOK AT THE MAR FOR GIVEN MEDS
--- NOTE | 2020-01-11 01:50 | NUR ---
CALL LIGHT ANSWERED. SBA TO AMBULATE 2 LAPS IN HALLWAY, STEADY GAIT, GUARDED ABDOMEN, BRACING WITH FOLDED DRAW SHEET. pt RATES PAIN 7/10 IN ABDOMEN, PRN MEDICATION ADMINISTERED. pt UP IN CHAIR AT THIS TIME. CALL LIGHT IN REACH. DENIES TOILETING OR ADDITIONAL NEEDS. ENSURE DRINKS, SNACKS OFFERED, pt DECLINES.
--- NOTE | 2020-01-11 02:02 | NUR ---
PT UP IN HIS RECLINER, SPO2 92% ON RA. BP 177/71. NO NEW DISCHARGE NOTED THIS TIME.
--- NOTE | 2020-01-11 02:37 | NUR ---
PT HELPED TO BED. STATED HIS PAIN IS DOWN, 02/24. SCD ON.
--- NOTE | 2020-01-11 04:08 | NUR ---
pt resting with his eyes closed, appears comfortable.
--- NOTE | 2020-01-11 06:05 | NUR ---
PT AMBULATED TWICE DURING THIS SHIFT. DURING THIS SHIFT PAIN WAS MANAGED WITH PO MEDS. ON AND OFF WITH O2 (1L). GP DRAIN, T TUBE PATENT. EXTRA GAUZ TO GP DRAIN INCISION TO PREVENT LEAKING. VOIDED WITHOUT DIFFICULTIES. SL ON THE RIGHT FOREARM 22GA, CONT d5% LR 75 ML/H. IN THE MORNING PAIN RESOLVED TO 4/10.
--- NOTE | 2020-01-11 08:15 | NUR ---
Spoke babatunde Fenton. States he is ok. Has returned from walk in the [place] with his . Spoke with Dr. Potter this am and he states possible dc tomorrow.
--- NOTE | 2020-01-11 09:36 | NUR ---
PT AMBULATED WITH IN HALLS. 3 LAPS OF MED SURG UNIT. TORADOL AND TYLENOL GIVEN AFTER WALK.
--- NOTE | 2020-01-11 09:48 | NUR ---
PATIENT SITTING UP IN CHAIR. IN ROOM. VITAL SIGNS AND I&O DONE. LINENS CHANGED. CALL LIGHT WITHIN REACH. NO OTHER NEEDS AT THIS TIME
--- NOTE | 2020-01-11 10:08 | NUR ---
pt leaving and reported the patient is resting quietly now.
--- NOTE | 2020-01-11 13:26 | NUR ---
ambulating in hallway with standby assist. 3 laps med surg unit.
--- NOTE | 2020-01-11 13:43 | NUR ---
PATIENT RESTING IN BED. IN ROOM. VITAL SIGNS AND I&O DONE. HIGH SYSTOLIC BLOOD PRESSURE. RN NOTIFIED. CALL LIGHT WITHIN REACH. NO OTHER NEEDS AT THIS TIME
--- NOTE | 2020-01-11 16:34 | NUR ---
redressed FREEMAN drain gauze and tape.
--- NOTE | 2020-01-11 16:34 | NUR ---
walked 3 laps in hallway with sba with this RN.
--- NOTE | 2020-01-11 17:06 | NUR ---
IV INFILTRATING/LEAKING. ATTEMPTED 3 IV STARTS BY DEB RN AND HECTOR RN. CALLING PARALEGAL SECRETARY TO SEE ABOUT ULTRASOUND GUIDED IV START.
--- NOTE | 2020-01-11 17:06 | PATH ---
[facility] [address], [place] [address] Signed SPECIMEN(S): A GALLBLADDER AND STONES SPECIMEN SOURCE: A. GALLBLADDER AND STONES CLINICAL HISTORY: Cholecystitis. FINAL PATHOLOGIC DIAGNOSIS: Gallbladder and stones, cholecystectomy: - Acute cholecystitis. DDF:caw:C2NR MICROSCOPIC EXAMINATION: Histologic sections of all submitted blocks are examined by light microscopy. These findings, together with the gross examination, support the pathologic diagnosis. GROSS DESCRIPTION: The specimen, labeled "MK, gallbladder," is received in formalin and consists of Specimen: Previously opened gallbladder. Dimensions: 8.0 cm in length and 8.6 cm in inner circumference. Serosa: Dark red and congested. Cystic Duct: Unobstructed. Calculi: No calculi identified in the gallbladder and within the container. Mucosa: Red-brown and partially covered with spear-vital, friable tissue. Wall thickness: 0.8 cm. Lymph node: No pericystic lymph nodes are grossly identified. Additional: None. Community Marketing Manager sections are submitted in cassette (A1). JS (under the direct supervision of a pathologist) The Gross Description was prepared using a voice recognition system. The report was reviewed for accuracy; however, sound-alike word errors, addition and/or deletions may occur. If there is any question about this report, please contact Client Services. PERFORMING LABORATORY: The technical component was performed by [facility], [address] [place] [id number] (Companion: Yanet Kerr MD; CLIA# [id number]). The professional interpretation was performed by PATIENT NAME: ELLIE PRIDE PATHOLOGY DATE OF : 55 REPORT #: [id number] PHYSICIAN: [facility] PCP: YULISA BONILLA MD REPORT IS CONFIDENTIAL AND NOT TO BE RELEASED WITHOUT AUTHORIZATION [facility] [address], [place] [address] Signed [facility], [facility], [address] [place] [address]. Diagnostician: Michael Nichole DO Pathologist Electronically Signed 01/11/2020 Copies: ~ PATIENT NAME: ELLIE PRIDE PATHOLOGY DATE OF : 55 REPORT #: [id number] PHYSICIAN: [facility] PCP: YULISA BONILLA MD REPORT IS CONFIDENTIAL AND NOT TO BE RELEASED WITHOUT AUTHORIZATION
--- NOTE | 2020-01-11 18:17 | NUR ---
UP TO AMBULATE 3X TODAY. TORADOL AND TYLENOL CONTROLLING PAIN. RLHumza FREEMAN DRAIN EXIT SITE DRESSING CHANGED. RESTED FOR SEVERAL HOURS THIS AFTERNOON. NEW IV IN LFA. D5LR @ 75.
--- NOTE | 2020-01-11 19:37 | NUR ---
RECIEVED REPORT FROM LALITA [place]. PT IN BED, AWAKE, ALERT, IN A GOOD MOOD AND SPIRIT. STATED HIS PAIN 4/10 AND HE TOLERATES IT WELL. PLANNED ON WALKING AROUND THE UNIT WITH HIS . STILL POOR APPETITE.
--- NOTE | 2020-01-11 20:25 | NUR ---
PT CALLED FOR PAIN MEDICATION. SEE MAR FOR GIVEN PRN MEDS. ASSESSMENT COMLETE. PT BACK IN BED. IN THE ROOM, SUPPORTIVE.
--- NOTE | 2020-01-11 21:22 | NUR ---
PAIN REASSESSED, PT STATED 01/24. BP WAS TAKEN MANUALLY 178/80. PT STATED THAT AT HOME HIS SYS BP RUNS AT THE RANGE 160-168. WILL MONITOR CLOSELY. NURSE NAOMIE NOTIFIED, CHARGE NURSE NOTIFIUED WELL.
--- NOTE | 2020-01-11 21:39 | NUR ---
PT IN BED WITH EYES CLOSED, APPEARS ASLEEP. COMFORTABLE.
--- NOTE | 2020-01-11 23:29 | NUR ---
RESTING IN BED WITH EYES CLOSED. APPEARS COMFORTABLE.
--- NOTE | 2020-01-12 01:07 | NUR ---
PT CALLED FOR PAIN MEDS. STATED PAIN 05/26. SEE MAR FOR ADMINISTERED MEDS. FLUIDS AND SNACKS WERE OFFERED.
--- NOTE | 2020-01-12 01:10 | NUR ---
NURSE AKBAR PROVIDED ICE PACK.
--- NOTE | 2020-01-12 02:47 | NUR ---
PT REPORTED NAUSEA. SEE MAR FOR ADMINISTERED MED. ASSESSMENT COMPLETED. PT IN BED, SCDS ON.
--- NOTE | 2020-01-12 04:28 | NUR ---
PT CALLED FOR PAIN MED. SEE MAR FOR ADMINISTERED MED. REMAINS IN BED, SCDS ON. DIM LIGHT IN THE ROOM, BED IN LOW POSITION, CALL LIGHT IN REACH.
--- NOTE | 2020-01-12 04:59 | NUR ---
CLEAN LINENS PROVIDED, BED CHANGED. PT UP AND AMBULATED IN HIS ROOM. BACK TO BED. SCDS ON. REPORTED NAUSEA. NAUSEA MED DUE IS IN 4 HOURS. APPLE SOUCE AND SOLTINS WERE OFFERED AN ATELRNATIVE. PT AGREED.
--- NOTE | 2020-01-12 05:35 | NUR ---
PT ATE A PACK OF APPLE SAUCE AND SALTINE CRACKERS. TOLERATED WELL. IN BED. RESTING COMFOPRTABLY
--- NOTE | 2020-01-12 06:11 | NUR ---
PT ALERT, ORIENTED, COOPERATIVE WITH ALL CARE. AMBULATED WWITH HIS AT THE BEGINNING OF THE SHIFT. PT REPORTED PAIN AND NAUSEA MULTIPLY TIMES DURING THIS SHIFT. SEE MAR FOR MEDCIATIONS ADMINISTERED. APPETITE IS STILL POOR. ATE A COUPLE SOLTINE CRACKERS AND A PACK OF APLLE SAUCE. NO BM FOR 4 DAYS. BOWEL SOUND HYPOACTIVE X 4 QUADRANTS. LUNG SOUND DIMINISHED BILATERALY. FREEMAN AND T TUBE PATENT, DRAINED 185 ML TOTAL. tHERE IS NO MORE LEAKING AROUND FREEMAN TUBE NOTED. T TUBE CHOLANGIOGRAM WITH PREOP ATB ([facility]) SCHEDULED FOR THE MORNING.
--- NOTE | 2020-01-12 07:32 | NUR ---
PHONE CALL TO MD, TELEPHONE ORDER REPEATED BACK FOR PRE PROCEDURE ANTIBIOTIC.
--- NOTE | 2020-01-12 07:55 | NUR ---
PATIENT IS AWKE, IN ROOM, ASKED FOR APPLE SAUSE. CALL LIGHT IN REACH
--- NOTE | 2020-01-12 07:56 | NUR ---
0710: Report recieved from Veronica CELIS. Pt resting in his bed and states his pain is under good control at a 3-4\10 at this time. Call joe within reach.
--- NOTE | 2020-01-12 09:38 | NUR ---
PT RESTING IN HIS BED. HE STATES HIS PAIN LEVEL IS ACCEPTABLE TO HIM. HE DID COMPLAIN OF SOME NAUSEA AND WAS MEDICATED ORDERED. FREEMAN DRAIN SITE DRESSING WAS SATURATED AND REINFORCED AT THIS TIME. FREEMAN AND T TUBE CONTINUE TO DRAIN AND WERE EMPTIED ORDERED. PT NOTED TO HAVE +1 UPPER ARM EDEMA AND +2 LOWER LEG EDEMA. LUNG SOUNDS ARE CLEAR AND HE DENIES ANY SOB. PT'S BP ELEVATED AND WAS GIVEN HIS SCHEDULED MEDS, WILL CONTINUE TO MONITOR.
--- NOTE | 2020-01-12 10:21 | NUR ---
DR POWELL CALLED AND NOTIFIED OF THE PT'S BP, NEW ORDERS RECEIVED. SEE EMAR.
--- NOTE | 2020-01-12 11:14 | NUR ---
1105: Pt taken off the floor to the x-ray dept.
--- NOTE | 2020-01-12 11:45 | NUR ---
Pt returned from the x-ray dept and states his abd pain is now a 9/10, see emar. Pt now back to bed. 1150: Dr Mckeon to the bedside. T tube clave placed to clamp the drain and the bag removed as ordered by Dr Mckeon. Dressing removed as ordered as well. the FREEMAN drain insertion site was leaking and was redressed as stated can be done by Dr Mckeon. Pt tolerated this all well.
--- NOTE | 2020-01-12 12:45 | NUR ---
Spoke with Kelly and his . He denies c/o. Tired, cont. to walk in the [place]. Denies needs.
--- NOTE | 2020-01-12 13:47 | NUR ---
PT STATES HIS PAIN IS ACCEPTABLE AT THIS TIME. HE DID NOT HOWEVER EAT ANY OF HIS LUNCH. FREEMAN DRAIN DRESSING HAS SOME SLIGHT DRAINAGE BUT REMAINS INTACT. THE OTHER SURGICAL SITES ARE OPEN TO AIR AND REMAIN DRY. PT NOW STATING HE IS HAVING SOME SLIGHT NAUSEA, SEE EMAR.
--- NOTE | 2020-01-12 13:49 | NUR ---
IT IS NOT YET TIME FOR ANYTHING FOR NAUSEA YET AND HE STATES IT IS NOT TOO BAD AND HE IS FINE WAITING UNTIL IT IS TIME.
--- NOTE | 2020-01-12 14:26 | NUR ---
PT AMBULATING IN THE HALLS WITH HIS AT THIS TIME.
--- NOTE | 2020-01-12 14:33 | NUR ---
PT IN RESTING IN BED. ALERT, ORIENTED AND SUPPORTED BY HIS SONG. PAIN IS 6-7 IN HIS WORDS TOLERABLE. PT AND BOTH FEEL INFORMED AND WELL CARED FOR HERE AT [facility], VERY PLEASED. OFFERED TO PRAY FOR PT-HE RESPECTFULLY DECLINED AND SAID HE HOPED THE GOOD LORD WILL FORGIVE HIM. SONG AFFIRMING AND LET HIM KNOW HE IS A "GOOD MAN". GAVE BLESSING, WILL FOLLOW NEEDED
--- NOTE | 2020-01-12 16:25 | NUR ---
PT RESTING IN HIS BED VISITING WITH HIS . HE DENIES ANY NAUSEA AT THIS TIME. HE RATES HIS ABD PAIN AT A 7 AND WAS MEDICATED, SEE EMAR. PT STATES HE WILL WALK IN THE HALLS AGAIN WHEN THE PAIN DECREASES. PT HAS WALKED 2 TIMES FOR A TOTAL OF 6 LAPS SO FAR TODAY. INCISION SITES APPEAR UNCHANGED. PT DID NOT EAT ANY LUNCH BUT HAS ORDERED SOME DINNER.
--- NOTE | 2020-01-12 17:56 | NUR ---
PT SLEEPING AT THIS TIME.
--- NOTE | 2020-01-12 18:00 | NUR ---
PT WALKED 3 TIMES THIS SHIFT FOR 9 LAPS. HE DID HAVE SOME PAIN HIGH A 9/10 TODAY WHICH WAS CONTROLED WITH HIS ORDERED MEDICATION. HE ALSO HAD NAUSEA WHICH WAS NOT RELATED TO EATING AND WAS CONTROLED WITH ORDERED MEDICATIONS WELL. HE HAD NAUSEA BOTH BEFORE AND AFTER THE CAPPING OF THE T-TUBE. DRESSINGS WERE REMOVED OTHER THAN THE ONE COVERING THE FREEMAN DRAIN IT IS LEAKING A MODERATE AMOUNT. PT SLEEPING AT THIS TIME. PT DID REQUIRE A DOSE OF IV HYDRALAZINE THIS SHIFT RELATED TO HTN.
--- NOTE | 2020-01-12 18:14 | NUR ---
PATRICK HAS ONLY ATE A SMALL BOWL OF APPLESAUSE AND SOME CRACKER AND A BOWEL OF JELLO THIS SHIFT. HE STILL HAS HIS DINNER AT THE BEDSIDE BUT HAS NOT ATE ANY OF IT YET. ELLIE HAS PASSED SOME GAS BUT HAS NOT YET HAD A BM HE STATES SINCE SURGERY.
--- NOTE | 2020-01-12 18:59 | NUR ---
PT ATE 100% OF HIS DINNER AND HE DENIES ANY PAIN OR NAUSEA CHANGES AFTER EATING.
--- NOTE | 2020-01-12 19:15 | NUR ---
SHIFT REPORT RECEIVED FROM DAYSHIFT LALITA SHARMA AT BEDSIDE. PT AWAKE AND RESTING IN BED, WATCHING TELEVISION. ABDOMINAL INCISIONS SITESX2 CLARE, FREEMAN DRAIN IN PLACE, SEROSANGUINEOUS OUTPUT NOTED. PT DENIES NAUSEA OR PAIN AT THIS TIME, CALL LIGHT IN REACH.
--- NOTE | 2020-01-12 20:06 | NUR ---
EMPTIED PT'S URINAL PER HIS REQUEST.
--- NOTE | 2020-01-12 22:30 | NUR ---
ASSESSMENT COMPLETE, SCHEDULED MEDS GIVEN (SEE EMAR). PT REPORTING INCREASED ABDOMINAL PAIN AND NAUSEA, PRN ZOFRAN AND PAIN MEDICATION ALSO GIVEN (SEE EMAR). NO CHANGE IN ABDOMINAL SITES, NO SIGNS OF INFECTION NOTED. SITES WELL APPROXIMATED. T-TUBE CAPPED, FREEMAN CONTINUES TO DRAIN, SEROSANGUINEOUS IN COLOR. BOWEL TONES ACTIVE. INFORMED BY [employer]BRU[employer] OF ELEVATED SBP IN 180'S-190'S. MANUAL BP OBTAINED BY THIS RN, RESULT OF 186/84 FOR FIRST ATTEMPT. SECOND ATTEMPT 194/84. HR 92. PT DENIES RUIZ OR CHEST/HEAD PRESSURE AT THIS TIME. ASYMPTOMATIC, DR POWELL MADE AWARE PER PARAMETERS. NEW TELEPHONE ORDER READ BACK FOR 2 INCHES NITRO PASTE Q6HPRN FOR SBP GREATER THAN 170.
--- NOTE | 2020-01-13 00:05 | NUR ---
PRN NITRO PASTE APPLIED FOR SBP 191/84, MAP 112, HR 94. EDUCATION PROVIDED ON USE OF NITRO PASTE AND S/E. PT VERBALIZED UNDERSTANDING. IV FLUIDS INFUSING AT 75MLS/HR, SITE WNL. SCD'S ON. NO FURTHER NEEDS VERABLIZED. CALL LIGHT IN REACH.
--- NOTE | 2020-01-13 05:30 | NUR ---
ASSESSMENT COMPLETE, NO NEW CHANGES OR CONCERNS. PT REPORTING 6/10 PAIN, PRN NAUSEA AND PAIN MEDICATION GIVEN (SEE EMAR). NO CHANGES IN INCISION SITES, SITES WELL APPROXIMATED. NO S/SX OF INFECTION. NO FURTHER NEEDS, CALL LIGHT IN REACH. SCD'S OFF PER PT REQUEST FOR REST.
--- NOTE | 2020-01-13 07:14 | NUR ---
VSS, PT DENIES PAIN AND NAUSEA. SBP 175, PER MD ORDERS NEW NITRO PASTE APPLIED TO LEFT CHEST. EDUCATION PROVIDED. NO FURTHER NEEDS, CALL LIGHT INR EACH.
--- NOTE | 2020-01-13 07:59 | NUR ---
BEDSIDE REPORT RECEIVED FROM MIGUEL ANGEL CELIS. WHITE BOARD UPDATED. ALL QUESTIONS ANSWERED. MIGUEL ANGEL CELIS PLACING NEW NITRO PATCH ON PATIENT FOR ELEVATED SBP >170. PATIENT CONTINUES TO HAVE POOR APPETITE. DENIES PAIN AND NAUSEA NOW. T TUBE CLAMPED. INCISIONS C/D/I. FREEMAN DRAIN TO BE REMOVED TODAY. EMPTIED 30ML OVERNIGHT PER MIGUEL ANGEL CELIS. D5LR @ 75.
--- NOTE | 2020-01-13 09:43 | NUR ---
ambulated 4 laps in [place] with standing by. no other needs at this time. took scheduled meds.
--- NOTE | 2020-01-13 10:08 | NUR ---
PT UP AMBULATING IN NG WITH HIS AT HIS SIDE. PT STILL WALKING SLIGHTLY BENT OVER, CLUTCHING A TOWEL TO HIS ABDOMEN. PUT IN SEVERAL LAPS, PT MAY DC TODAY. WILL CONTINUE TO GIVE ENCOURAGEMENT
--- NOTE | 2020-01-13 10:20 | NUR ---
Spoke with Eliceo and his . Awaiting Dr. Potter for dc. Eliceo has walked in the [place] several times. Feels he is doing well. Denies need for equipment for dc. will Dc to home with his .
[2020-01-13] MEDS ORDERED: IBUPROFEN600 MG PO (11:40)
[2020-01-13] MEDS ORDERED: FAMOTIDINE20 MG PO (11:41)
[2020-01-13] MEDS ORDERED: TYLENOL EXTRA500 MG PO (11:41)
--- NOTE | 2020-01-13 11:46 | NUR ---
PROVIDED GAUZE, TAPE, URINAL, AND SPECIMEN CUP TO SEND HOME WITH PATIENT. IV REMOVED. TO GIVE PATIENT "SPIT BATH" BEFORE DISCHARGE.
--- NOTE | 2020-01-13 12:12 | NUR ---
PATIENT IS GETTING READY TO GO HOME HELPED PATIENT GET READY GAVE PATIENT A PARTIAL BATH.VITALS DONE
[2020-01-13] MEDS ORDERED: CIPRO500 MG PO (14:25)
== END 2020-01-13 15:35 | disposition home or self-care (01) | DRG 413 ==
LOC: ED 11:38 → MS 14:51
PROVIDERS: ADMIT Surgery
PROC: 3C1ZX8Z Irrigation of Indwelling Device using Irrigating Substance, External Approach (ICD-10-PCS; 2020-01-09)
PROC: 0FT40ZZ Resection of Gallbladder, Open Approach (ICD-10-PCS; principal; 2020-01-09 11:30)
PROC: 0FC90ZZ Extirpation of Matter from Common Bile Duct, Open Approach (ICD-10-PCS; 2020-01-09 11:30)
PROC: 0FJ44ZZ Inspection of Gallbladder, Percutaneous Endoscopic Approach (ICD-10-PCS; 2020-01-09 11:30)
DX: K80.42 Calculus of bile duct with acute cholecystitis without obstruction (principal); E87.6 Hypokalemia; E11.9 Type 2 diabetes mellitus without complications; M54.9 Dorsalgia, unspecified; G89.29 Other chronic pain; I10 Essential (primary) hypertension; K21.9 Gastro-esophageal reflux disease without esophagitis; E78.00 Pure hypercholesterolemia, unspecified; Z53.31 Laparoscopic surgical procedure converted to open procedure; Z88.5 Allergy status to narcotic agent; Z79.4 Long term (current) use of insulin; Z79.891 Long term (current) use of opiate analgesic; Z79.899 Other long term (current) drug therapy
CPT/HCPCS: 36415; 47531; 71046; 74177; 74300; 80053; 81001; 82247; 82465; 83615; 83690; 83735; 84100; 84478; 84550; 85025; 85379; 88304; 93005; 93010; 94760; 94762; 96361; 99285-25; A9270; J0360; J0690; J1100; J1170; J1644; J1815; J1885; J2405; J2704; J3010; J3475; J3480; J7030; J7060; J7121; Q9967